=== PATIENT | male | born 1950 ===

== ENCOUNTER → 2016-08-28 17:12 | Outpatient (CLI) | payer MEDICARE ==
[2016-08-31 13:11] LABS: CRYPTOCOCCUS AG - SERUM Negative (Negative)
== END | disposition home or self-care (01) ==
LOC: D.LABREF 17:12
PROVIDERS: Student in an Organized Health Care Education/Training Program
DX: R91.8 Other nonspecific abnormal finding of lung field (principal)

== ENCOUNTER → 2016-10-23 16:30 | Outpatient (CLI) | payer MEDICARE | END | disposition home or self-care (01) | LOC: D.LABREF 16:30 | DX: R91.8 Other nonspecific abnormal finding of lung field (principal) ==